=== PATIENT | male | born 1980 | race Caucasian/White ===

== ENCOUNTER 2019-11-06 15:20 | Outpatient (CLI) | payer BC ==
--- NOTE | 2019-11-06 16:18 | RAD ---
PA AND LATERAL CHEST: HISTORY: Routine adult health maintenance. The patient complains of a numbing sensation in the right mid chest . COMPARISON: There are no previous exams for comparison. FINDINGS: The heart size is borderline. The lungs are expanded without lobar consolidation, pneumothoraces, fra nk pulmonary edema or pleural effusions. No acute osseous abnormalities are seen. IMPRESSION: No radiographic evidence of acute cardiopulmonary process. POS: [facility]
== END 2019-11-06 15:21 | disposition home or self-care (01) ==
LOC: BICRAD 15:20
PROVIDERS: ATTEND Family Medicine
DX: Z00.00 Encounter for general adult medical examination without abnormal findings (principal)
CPT/HCPCS: 71046